=== PATIENT | female | born 1940 | race Caucasian/White ===

== ENCOUNTER → 2018-02-17 | Outpatient (CLI) | payer OTHER | LOC: M.RAD 13:22 | DX: M85.89 Other specified disorders of bone density and structure, multiple sites (principal); N64.4 Mastodynia; E03.9 Hypothyroidism, unspecified; E11.9 Type 2 diabetes mellitus without complications; Z78.0 Asymptomatic menopausal state ==

== ENCOUNTER → 2019-08-07 | Outpatient (CLI) | payer MEDICARE | LOC: M.RAD 09:27 | DX: Z12.31 Encounter for screening mammogram for malignant neoplasm of breast (principal) ==

== ENCOUNTER → 2020-09-30 | Outpatient (CLI) | payer MEDICARE | LOC: M.RAD 09:01 | PROVIDERS: ATTEND Family Medicine | DX: Z12.31 Encounter for screening mammogram for malignant neoplasm of breast (principal) ==

== ENCOUNTER → 2020-12-27 | Outpatient (CLI) | payer MEDICARE ==
--- NOTE | 2020-12-27 11:58 | 2DMMODE ---
[place] [address] 2 D/M-MODE ECHOCARDIOGRAM Name: SUMMER BOONE Room: [facility]#: [id number] Admission: 12/27/20 Attend Phys: Erica Clayton Discharge: Date of : 44 Date of Service: 12/27/20 1158 Report #: [id number] THIS REPORT FOR: cc: Erica Clayton MD, Kandice L. MD Liston, Michael J. MD [facility] ~ APPROVED REPORT Study performed: 12/27/2020 08:14:29 EXAM: Comprehensive 2D, Doppler, and color-flow Echocardiogram Patient Location: Out-Patient BSA: 1.76 HR: 87 bpm BP: 160/80 mmHg Other Information Study Quality: Good Indications Peripheral Edema Hypertension/HDD 2D Dimensions IVSd: 14.26 (7-11mm) LVOT Diam: 19.91 (18-24mm) LVDd: 39.46 mm PWd: 10.12 (7-11mm) Ascending Ao: 28.28 (22-36mm) LVDs: 30.52 (25-40mm) Aortic Root: 26.20 mm Volumes Left Atrial Volume (Systole) LA ESV Index: 16.00 mL/m2 Aortic Valve AoV Peak Eduard.: 1.53 m/s AO Peak Gr.: 9.41 mmHg LVOT Max P.75 mmHg AO Mean Gr.: 5.41 mmHg LVOT Mean P.12 mmHg LVOT Max V: 1.09 m/s AO V2 VTI: 29.16 cm LVOT Mean V: 0.65 m/s BAILEE (VTI): 2.34 cm2 LVOT V1 VTI: 21.88 [place] [address] 2 D/M-MODE ECHOCARDIOGRAM Name: SUMMER BOONE Room: [facility]#: [id number] Admission: 12/27/20 Attend Phys: Erica Clayton Discharge: Date of : 44 Date of Service: 12/27/20 1158 Report #: [id number] MV Decel. Time: 105.76 ms MV PHT: 30.67 ms MVA (PHT): 7.17 cm2 TDI Medial E' Eduard.: 0.12 m/s Lateral E' Eduard.: 0.08 m/s Pulmonary Valve PV Peak Eduard.: 1.18 m/s PV Peak Gr.: 5.59 mmHg Left Ventricle The left ventricle is normal size. Left ventricular systolic dyssynergy noted consistent with underlying bundle branch block. Mild concentric left ventricular hypertrophy. Left ventricular systolic function is normal. LVEF is 50-55%. Grade I - abnormal relaxation pattern. Right Ventricle The right ventricle is normal size. The right ventricular systolic function is normal. Atria The left atrium size is normal. The right atrium size is normal. Aortic Valve The aortic valve is normal in structure. No aortic regurgitation is present. There is no aortic valvular stenosis. Mitral Valve The mitral valve is normal in structure. Mild mitral regurgitation. No evidence of mitral valve stenosis. Tricuspid Valve The tricuspid valve is normal in structure. There is no tricuspid valve regurgitation noted. Pulmonic Valve The pulmonary valve is normal in structure. There is no pulmonic valvular regurgitation. Great Vessels The aortic root is normal in size. IVC is normal in size and collapses >50% [place] [address] 2 D/M-MODE ECHOCARDIOGRAM Name: SUMMER BOONE [id number] Admission: 12/27/20 Attend Phys: Erica Clayton Discharge: Date of : 44 Date of Service: 12/27/20 1158 Report #: [id number] Pericardium There is no pericardial effusion. <Conclusion> The left ventricle is normal size. Mild concentric left ventricular hypertrophy. Left ventricular systolic function is normal. LVEF is 50-55%. Grade I - abnormal relaxation pattern. Left ventricular systolic dyssynergy noted consistent with underlying bundle branch block. Mild mitral regurgitation. IVC is normal in size and collapses >50% with inspiration. <ELECTRONICALLY SIGNED> By: Ian Harrell MD, FACC 12/27/20 1158 1158 1158 Ian Harrell MD, FACC /INF
== END ==
LOC: M.ULTRA 07:25 → M.CRD 08:00
PROVIDERS: ATTEND Family Medicine
DX: I34.0 Nonrheumatic mitral (valve) insufficiency (principal); I10 Essential (primary) hypertension; R55 Syncope and collapse; R60.0 Localized edema

== ENCOUNTER → 2021-07-05 | Outpatient (CLI) | payer MEDICARE | LOC: M.ULTRA 06-15 16:01 | PROVIDERS: ATTEND Internal Medicine | DX: N28.1 Cyst of kidney, acquired (principal); M71.21 Synovial cyst of popliteal space [Baker], right knee; M79.89 Other specified soft tissue disorders ==